=== PATIENT | male | born 1995 | race Caucasian/White ===

== ENCOUNTER 2021-01-24 10:00 | Emergency (ER) | payer BC ==
[2021-01-24 10:54] LABS: Urine Blood Negative (Negative); Urine Glucose Negative (Negative); Urine Protein Negative (Negative)
[2021-01-24 11:29] LABS: Barbiturates NEGATIVE (NEGATIVE); Benzodiazepines POSITIVE (NEGATIVE); Cocaine NEGATIVE (NEGATIVE); METHAMPHETAM NEGATIVE (NEGATIVE); Methadone NEGATIVE (NEGATIVE); Opiates NEGATIVE (NEGATIVE); Phencyclidine NEGATIVE (NEGATIVE); THC Cannibis POSITIVE (NEGATIVE)
[2021-01-24 11:32] LABS: Absolute Lymphocytes (CBC) 2.3 K/uL (0.7-4.9); Basophils % 0.7 % (0-1.3); Hematocrit 45.6 % (39.6-49.0); Lymphocytes % 11.8 % (15.3-44.8); MPV 9.8 fL (7.6-11.3)
[2021-01-24 11:35] LABS: Protime INR 1.06
[2021-01-24 12:05] LABS: ALT/SGPT 25 U/L (12-78); AST/SGOT 20 U/L (15-37); Albumin 4.1 g/dL (3.4-5.0); Alkaline Phosphatase 77 U/L (45-117); BUN Blood Urea Nitrogen 16 mg/dL (7-18); Bicarbonate 25 mmol/L (21-32); Bilirubin Direct 0.3 mg/dL (0-0.2); Bilirubin Total 1.8 mg/dL (0.2-1.0); Glucose Level 84 mg/dL (74-106); Protein, Total 7.1 g/dL (6.4-8.2); Sodium Level 140 mmol/L (136-145)
--- NOTE | 2021-01-24 12:18 | EDPHYS ---
Physician Documentation [facility] Name: Romero Orourke Age: 25 yrs Sex: Male : 1995 Arrival Date: 01/24/2021 Time: 10:01 Bed 16 Private MD: ED Physician Omkar Reza HPI: 01/24 12:08 This 25 yrs old Male presents to ER via EMS with complaints of Possible ma2 Overdose. 12:08 The patient presents to the emergency department with a known poisoning, valium. ma2 Associated signs and symptoms: Pertinent negatives: auditory hallucinations, depression, diarrhea, dizziness. Severity of symptoms: At their worst the symptoms were very mild in the emergency department the symptoms are unchanged. The patient has experienced a previous episode. 25-year-old male he overdosed 10 tablets of 5 mg Valium last night at 11 PM, he also had self-inflicted superficial laceration of the right forearm that he did last night at 10 PM, he was brought here by EMS, patient stated that he broke up with his girlfriend last night, and felt anxious, and stressed and that is why he did that, at this point he regretted and he said that he does not have any thoughts to harm self or suicidal ideation. He does not have any depression at this point, or any other depressive symptoms, no prior suicidal attempt, no alcohol history, or other recreational drugs except marijuana occasionally, he does have a rational thought, he does not have any organized plan or serious attempt in the past he does have a social support system very low risk as per sad persons score, gets 1 score only for recent spouse separation.. Historical: - Allergies: 10:08 No Known Allergies; ph - PMHx: 10:08 Bipolar disorder; ADD/ADHD; ph - Immunization history:: Client reports having NOT received the Covid vaccine. - Social history:: Smoking status: Patient reports the use of cigarette tobacco products, smokes one pack cigarettes per day. Patient uses alcohol, occasionally. street drugs, marijuana. - Family history:: not pertinent. ROS: 12:08 Constitutional: Negative for fever, chills, and weight loss. ma2 12:08 All other systems are negative. Exam: 12:08 Constitutional: This is a well developed, well nourished patient who is awake, alert, ma2 and in no acute distress. Head/Face: Normocephalic, atraumatic. Eyes: Pupils equal round and reactive to light, extra-ocular motions intact. Lids and lashes normal. Conjunctiva and sclera are non-icteric and not injected. Cornea within normal limits. Periorbital areas with no swelling, redness, or edema. ENT: Nares patent. No nasal discharge, no septal abnormalities noted. Tympanic membranes are normal and external auditory canals are clear. Oropharynx with no redness, swelling, or masses, exudates, or evidence of obstruction, uvula midline. Mucous membranes moist. Neck: Trachea midline, no thyromegaly or masses palpated, and no cervical lymphadenopathy. Supple, full range of motion without nuchal rigidity, or vertebral point tenderness. No Meningismus. Chest/axilla: Normal chest wall appearance and motion. Nontender with no deformity. No lesions are appreciated. Cardiovascular: Regular rate and rhythm with a normal S1 and S2. No gallops, murmurs, or rubs. Normal PMI, no JVD. No pulse deficits. Respiratory: Lungs have equal breath sounds bilaterally, clear to auscultation and percussion. No rales, rhonchi or wheezes noted. No increased work of breathing, no retractions or nasal flaring. Abdomen/GI: Soft, non-tender, with normal bowel sounds. No distension or tympany. No guarding or rebound. No evidence of tenderness throughout. Back: No spinal tenderness. No costovertebral tenderness. Full range of motion. Skin: Warm, dry with normal turgor. Normal color with no rashes, no lesions, and no evidence of cellulitis. MS/ Extremity: Pulses equal, no cyanosis. Neurovascular intact. Full, normal range of motion. Neuro: Awake and alert, GCS 15, oriented to person, place, time, and situation. Cranial nerves II-XII grossly intact. Motor strength 5/5 in all extremities. Sensory grossly intact. Cerebellar exam normal. Normal gait. Psych: Awake, alert, with orientation to person, place and time. Behavior, mood, and affect are within normal limits. 12:18 Musculoskeletal/extremity: Extremities: all appear grossly normal, with no appreciated ma2 pain with palpation, grossly normal except: There is multiple self-inflicted superficial lacerations of the right anterior forearm, about 6 separate lacerations ranging between 3 and 5 cm each, there is 2 deep wounds, however its more than 12 hours and nonsuturable., ROM: intact in all extremities, Circulation is intact in all extremities. Sensation intact. Compartment Syndrome exam of affected extremity: is normal. Tendon exam: specific tendon testing normal through active and passive range of motion DVT Exam: no pain. Vital Signs: 10:01 BP 111 / 69; Pulse 81; Resp 18; Temp 97.8; Pulse Ox 100% on R/A; Weight 86.18 kg; ph Height 6 ft. 2 in. (187.96 cm); 11:00 BP 108 / 78; Pulse 83; Resp 18; Pulse Ox 100% on R/A; ph 12:00 BP 112 / 68; Pulse 78; Resp 18; Pulse Ox 100% on R/A; ph 10:01 Body Mass Index 24.39 (86.18 kg, 187.96 cm) ph MDM: 10:01 Patient medically screened. [facility] 12:08 Differential diagnosis: Ingestion/exposure to Valium, we called poison control center [facility] and advised to discharge if blood work is within normal limits, patient does not need an emergent psych admission, he will follow up with psychiatrist, has history of bipolar, over medication, hypoglycemia. Data reviewed: vital signs, nurses notes. Counseling: I had a detailed discussion with the patient and/or guardian regarding: the historical points, exam findings, and any diagnostic results supporting the discharge/admit diagnosis, the presence of at least one elevated blood pressure reading (>120/80) during this emergency department visit, the need for outpatient follow up. 12:16 Response to treatment: the patient's symptoms have markedly improved after treatment. 01/24 10:01 Order name: Acetaminophen 01/24 10:01 Order name: Basic Metabolic Panel 01/24 10:01 Order name: CBC with Diff 01/24 10:01 Order name: ETOH Level; Complete Time: 12:05 [facility] 01/24 10:01 Order name: Hepatic Function; Complete Time: 12:16 01/24 10:01 Order name: PT-INR; Complete Time: 12:05 [facility] 01/24 10:01 Order name: Ptt, Activated; Complete Time: 12:05 [facility] 01/24 10:01 Order name: Salicylate ma01/24 10:01 Order name: Urine Drug Screen; Complete Time: 12:05 [facility] 01/24 10:02 Order name: Acetaminophen Level; Complete Time: 12:16 [facility] 01/24 10:02 Order name: Basic Metabolic Panel; Complete Time: 12:16 [facility] 01/24 10:02 Order name: CBC with Automated Diff; Complete Time: 12:05 [facility] 01/24 10:53 Order name: Urine Dipstick-Ancillary; Complete Time: 11:18 [facility] 01/24 10:01 Order name: EKG - Nurse/Tech [facility] 01/24 10:01 Order name: IV Saline Lock; Complete Time: 12:10 [facility] 01/24 10:01 Order name: Labs collected and sent; Complete Time: 12:10 [facility] 01/24 10:01 Order name: Suicide Precautions; Complete Time: 12:10 [facility] 01/24 10:01 Order name: Suicide Screening ([place]); Complete Time: 12:10 [facility] 01/24 10:01 Order name: Urine Dipstick-Ancillary (obtain specimen); Complete Time: 10:43 ma2 Administered Medications: No medications were administered Disposition Summary: 01/24/21 12:17 Discharge Ordered Location: Home ma2 Condition: Stable ma2 Diagnosis - Arm Laceration Right/Open wound forearm ma2 - Encounter for observation for suspected toxic effect from ingested substance ruled ma2 out Followup: ma2 - With: Private Physician - When: Tomorrow - Reason: If symptoms return Discharge Instructions: - Discharge Summary Sheet ma2 - Laceration Care, Adult, [id number] ma2 - Preventing Marijuana Misuse ma2 Forms: - Medication Reconciliation Form ma2 - Thank You Letter ma2 - Work release form ph - Antibiotic Education ma2 - Prescription Opioid Use ma2 Signatures: Dispatcher [employer] Veronica King RN RN ph Alzahri, Mohammad, MD MD ma2
--- NOTE | 2021-01-24 12:18 | ER ---
Nurse's Notes [facility] Name: Romero Orourke Age: 25 yrs Sex: Male : 1995 Arrival Date: 01/24/2021 Time: 10:01 Bed 16 Private MD: Diagnosis: Arm Laceration Right/Open wound forearm;Encounter for observation for suspected toxic effect from ingested substance ruled out Presentation: 01/24 10:01 Chief complaint: EMS states: Pt reports taking 15-20, 5mg Valium last night at around ph midnight, pt states that he was upset because he found out that his girlfriend of 6 months was talking to another man on social media, also has self inflicted lacerations to R forearm, pt states that he is not currently suicidal, that taking the valium was "on impulse" and "that the cutting was a way to feel the pain somewhere else" Hx of bipolar \\T\\ ADD/ADHD, is not currently on medication. Coronavirus screen: Client denies travel out of the [place] in the last 14 days. At this time, the client does not indicate any symptoms associated with coronavirus-19. Ebola Screen: No symptoms or risks identified at this time. Initial Sepsis Screen: Does the patient meet any 2 criteria? No. Patient's initial sepsis screen is negative. Does the patient have a suspected source of infection? No. Patient's initial sepsis screen is negative. Risk Assessment: Do you want to hurt yourself or someone else? Patient reports no desire to harm self or others. Onset of symptoms was January 24, 2021. 10:01 Method Of Arrival: EMS: [facility] ph 10:01 Acuity: LASHON 3 ph Historical: - Allergies: 10:08 No Known Allergies; ph - PMHx: 10:08 Bipolar disorder; ADD/ADHD; ph - Immunization history:: Client reports having NOT received the Covid vaccine. - Social history:: Smoking status: Patient reports the use of cigarette tobacco products, smokes one pack cigarettes per day. Patient uses alcohol, occasionally. street drugs, marijuana. - Family history:: not pertinent. Screenin:10 Abuse screen: Denies threats or abuse. Denies injuries from another. Nutritional ph screening: No deficits noted. Tuberculosis screening: No symptoms or risk factors identified. Fall Risk None identified. Assessment: 10:34 Reassessment: Spoke w/ Kyra at [place] poison control who recommends that we check a ph toxicology panel and refer pt to psychiatric care if it is found appropriate, no need to monitor patient for any specific period of time d/t time of ingestion. 10:43 General: Appears in no apparent distress. comfortable, slender, Behavior is calm, ph cooperative, appropriate for age, Pt continues to deny SI, states," I'm good, she's not worth all that. I just made a stupid decision last night. I don't know what I was thinking.". Pain: Denies pain. Neuro: Level of Consciousness is awake, alert, obeys commands, Oriented to person, place, time, situation. Cardiovascular: Capillary refill < 3 seconds in bilateral fingers. Respiratory: Airway is patent Respiratory effort is even, unlabored, Respiratory pattern is regular, symmetrical. GI: No signs and/or symptoms were reported involving the gastrointestinal system. Derm: Skin is healthy with good turgor, Skin is pink, warm \\T\\ dry. Musculoskeletal: Circulation, motion, and sensation intact. Range of motion: intact in all extremities. 11:00 Injury Description: Laceration sustained to dorsal aspect of right forearm is 2.6 to ph 7.5 cm long, not bleeding, was sustained 12-24 hours ago. Injury Description: Abrasion sustained to dorsal aspect of right forearm is scabbed, was sustained 12-24 hours ago. Laceration sustained to dorsal aspect of right forearm is 2.6 to 7.5 cm long, was sustained 12-24 hours ago. no active bleeding noted at this time. 11:30 Reassessment: Patient appears in no apparent distress at this time. Patient and/or ph family updated on plan of care and expected duration. Pain level reassessed. Patient is alert, oriented x 3, equal unlabored respirations, skin warm/dry/pink. pt requesting to go outside to smoke, explained to pt that he can't leave the ER w/ an IV in place and that the hospital is a non-smoking campus. Overdose: 10:46 [place] Suicide Severity Screening: "In the past month, have you wished you were ph or wished you could go to sleep and not wake up?" Patient responds "no." "In the past month, have you actually had any thoughts of killing yourself?" Patient responds "no." "In your lifetime, have you ever done anything, started to do anything, or prepared to do anything to end your life?" Patient responds "yes." Patient reports suicidal intent occurred greater than 3 months prior. Patient took 10-15 5mg Valium, states, " I was upset and did it on impulse to feel better.". Overdose occurred more than 10 hours ago. Vital Signs: 10:01 BP 111 / 69; Pulse 81; Resp 18; Temp 97.8; Pulse Ox 100% on R/A; Weight 86.18 kg; ph Height 6 ft. 2 in. (187.96 cm); 11:00 BP 108 / 78; Pulse 83; Resp 18; Pulse Ox 100% on R/A; ph 12:00 BP 112 / 68; Pulse 78; Resp 18; Pulse Ox 100% on R/A; ph 10:01 Body Mass Index 24.39 (86.18 kg, 187.96 cm) ph ED Course: 10:01 Patient arrived in ED. ph 10: Omkar Reza MD is Attending Physician. ma2 10:08 Triage completed. ph 10:10 Arm band placed on Patient placed in an exam room. ph 10:10 Patient has correct armband on for positive identification. Bed in low position. Call ph light in reach. Side rails up X 1. Pulse ox on. NIBP on. 10:29 Veronica Carpenter RN is Primary Nurse. ph 12:30 Wound care: to x2 located on dorsal aspect of right forearm was cleaned with Hibiclens, ph irrigated with normal saline, dressed with Neosporin, 4X4s, cling, Patient tolerated well. 12:44 No provider procedures requiring assistance completed. IV discontinued, intact, ph bleeding controlled, No redness/swelling at site. Pressure dressing applied. Administered Medications: No medications were administered Outcome: 12:17 Discharge ordered by . ma2 12:44 Patient left the ED. ph 12:44 Discharged to home ambulatory. ph 12:44 Condition: good 12:44 Discharge instructions given to patient, Instructed on discharge instructions, follow up and referral plans. wound care, Demonstrated understanding of instructions, follow-up care, wound care. Signatures: Veronica Carpenter RN RN Omkar Reza MD MD ma2 Corrections: (The following items were deleted from the chart) 15:27 10:43 General: Appears in no apparent distress. comfortable, slender, Behavior is calm, ph cooperative, appropriate for age, ph
== END 2021-01-24 12:44 | disposition home or self-care (01) ==
LOC: ER 10:00
DX: Z03.6 Encounter for observation for suspected toxic effect from ingested substance ruled out (principal); S51.811A Laceration without foreign body of right forearm, initial encounter; F17.210 Nicotine dependence, cigarettes, uncomplicated
CPT/HCPCS: 36415; 80048; 80076; 80307; 80320; 80329; 81003; 85025; 85610; 85730; 99284

== ENCOUNTER 2021-01-24 14:06 | Emergency (ER) | payer BC ==
--- NOTE | 2021-01-24 14:57 | EDPHYS ---
Physician Documentation [facility] Name: Romero Orourke Age: 25 yrs Sex: Male : 1995 Arrival Date: 01/24/2021 Time: 14:08 Bed 7 Private MD: ED Physician mOkar Reza HPI: 01/24 14:55 This 25 yrs old Male presents to ER via [employer] with complaints of ma2 Suicidal Ideation. 14:55 Onset: The symptoms/episode began/occurred suddenly, 1 day(s) ago. Associated signs and ma2 symptoms: Pertinent negatives: chest pain, delusions, fever, headache, homicidal ideation. Severity of symptoms: At their worst the symptoms were mild in the emergency department the symptoms are unchanged. The patient has experienced similar episodes in the past. Historical: - Allergies: 18:08 No Known Allergies; hb - PMHx: 14:12 ADD/ADHD; Bipolar disorder; ss - Immunization history:: Adult Immunizations up to date. - Social history:: Smoking status: Patient reports the use of cigarette tobacco products. - Family history:: not pertinent. ROS: 14:55 Constitutional: Negative for fever, chills, and weight loss. ma2 14:55 All other systems are negative. Exam: 14:55 Constitutional: This is a well developed, well nourished patient who is awake, alert, ma2 and in no acute distress. Head/Face: Normocephalic, atraumatic. Eyes: Pupils equal round and reactive to light, extra-ocular motions intact. Lids and lashes normal. Conjunctiva and sclera are non-icteric and not injected. Cornea within normal limits. Periorbital areas with no swelling, redness, or edema. ENT: Nares patent. No nasal discharge, no septal abnormalities noted. Tympanic membranes are normal and external auditory canals are clear. Oropharynx with no redness, swelling, or masses, exudates, or evidence of obstruction, uvula midline. Mucous membranes moist. Neck: Trachea midline, no thyromegaly or masses palpated, and no cervical lymphadenopathy. Supple, full range of motion without nuchal rigidity, or vertebral point tenderness. No Meningismus. Chest/axilla: Normal chest wall appearance and motion. Nontender with no deformity. No lesions are appreciated. Cardiovascular: Regular rate and rhythm with a normal S1 and S2. No gallops, murmurs, or rubs. Normal PMI, no JVD. No pulse deficits. Respiratory: Lungs have equal breath sounds bilaterally, clear to auscultation and percussion. No rales, rhonchi or wheezes noted. No increased work of breathing, no retractions or nasal flaring. Abdomen/GI: Soft, non-tender, with normal bowel sounds. No distension or tympany. No guarding or rebound. No evidence of tenderness throughout. Back: No spinal tenderness. No costovertebral tenderness. Full range of motion. Skin: Warm, dry with normal turgor. Normal color with no rashes, no lesions, and no evidence of cellulitis. MS/ Extremity: Pulses equal, no cyanosis. Neurovascular intact. Full, normal range of motion. Neuro: Awake and alert, GCS 15, oriented to person, place, time, and situation. Cranial nerves II-XII grossly intact. Motor strength 5/5 in all extremities. Sensory grossly intact. Cerebellar exam normal. Normal gait. Psych: suicidal attempts Vital Signs: 14:57 BP 116 / 71; Pulse 66; Resp 16; Temp 98.0(TE); Pulse Ox 98% on R/A; Pain 0/10; ss MDM: 14:55 Differential diagnosis: drug withdrawal. acute psychotic break, depression, psychosis ma2 secondary to non-compliance. Data reviewed: vital signs, nurses notes. Counseling: I had a detailed discussion with the patient and/or guardian regarding: the historical points, exam findings, and any diagnostic results supporting the discharge/admit diagnosis, the presence of at least one elevated blood pressure reading (>120/80) during this emergency department visit, lab results, the need for outpatient follow up. Counseling: I had a detailed discussion with the patient and/or guardian regarding: the need to transfer to another facility. Response to treatment: the patient's symptoms have markedly improved after treatment. 14:56 Patient medically screened. ma2 15:14 ED course: tox screen was done, all came back negative except UDS was positive for ma2 marijuana, and benzos. We initiated transfer I talked to Dr. Virgen he accepted the patient.. 01/24 16:16 Order name: SARS-COV-2 RT PCR EDMS Administered Medications: No medications were administered Disposition Summary: 01/24/21 14:56 Transfer Ordered Transfer Location: Other Acute Care Facility ma2 Reason: Higher level of care ma2 Condition: Stable ma2 Problem: new ma2 Symptoms: are unchanged ma2 Accepting Physician: vanessa(01/24/21 19:52) mw2 Diagnosis - Suicidal ideations ma2 Forms: - Medication Reconciliation Form ma2 - SBAR form ma2 Signatures: Dispatcher [employer] EDLizzeth Rosenberg RN RN Alpa Holliday RN RN Omkar Reza MD MD ma2 Nestor Guaman mw2 Corrections: (The following items were deleted from the chart) 15:24 14:10 CORONAVIRUS+MR.LAB.BRZ ordered. EDPR EDMS 18:08 16:47 Allergies: Geodon; hb 19:52 14:56 [facility] ma2 mw2
--- NOTE | 2021-01-24 14:57 | ER ---
Nurse's Notes [facility] Name: Romero Orourke Age: 25 yrs Sex: Male : 1995 Arrival Date: 01/24/2021 Time: 14:08 Bed 7 Private MD: Diagnosis: Suicidal ideations Presentation: 01/24 14:10 Chief complaint: housing management officer states that patient was discharged from hospital and ss went back home and stated that he wanted to take some of his mother's medication to harm himself. Upon arrival to ED, patient denies SI/HI. Coronavirus screen: Client denies travel out of the [place] in the last 14 days. Ebola Screen: Patient denies exposure to infectious person. Patient denies travel to an Ebola-affected area in the 21 days before illness onset. Initial Sepsis Screen: Does the patient meet any 2 criteria? No. Patient's initial sepsis screen is negative. Does the patient have a suspected source of infection? No. Patient's initial sepsis screen is negative. Risk Assessment: Do you want to hurt yourself or someone else? Patient reports no desire to harm self or others. Onset of symptoms is unknown. 14:10 Method Of Arrival: Law Enforcement: [place] [employer] 14:10 Acuity: LASHON 2 ss Historical: - Allergies: 18:08 No Known Allergies; hb - PMHx: 14:12 ADD/ADHD; Bipolar disorder; ss - Immunization history:: Adult Immunizations up to date. - Social history:: Smoking status: Patient reports the use of cigarette tobacco products. - Family history:: not pertinent. Screenin:45 Abuse screen: Denies threats or abuse. Denies injuries from another. Nutritional hb screening: No deficits noted. Tuberculosis screening: No symptoms or risk factors identified. Fall Risk None identified. Assessment: 14:45 General: Appears in no apparent distress. Behavior is agitated, anxious, uncooperative. hb Pain: Denies pain. Neuro: Level of Consciousness is awake, alert, obeys commands, Oriented to person, place, time, situation. Cardiovascular: Patient's skin is warm and dry. Respiratory: Respiratory effort is even, unlabored, Respiratory pattern is regular, symmetrical. GI: No signs and/or symptoms were reported involving the gastrointestinal system. : No signs and/or symptoms were reported regarding the genitourinary system. EENT: No signs and/or symptoms were reported regarding the EENT system. Derm: Skin is pink, warm \T\ dry. Musculoskeletal: No signs and/or symptoms reported regarding the musculoskeletal system. 14:50 Reassessment:. hb 14:58 Reassessment: Nurse to nurse given to SUSANNE Kaur at [facility]. Administrative ss approval given at this time and states that she will call back with Doc to Doc information here shortly. 15:45 Reassessment: Patient appears in no apparent distress at this time. Patient and/or hb family updated on plan of care and expected duration. Pain level reassessed. Patient is alert, oriented x 3, equal unlabored respirations, skin warm/dry/pink. 16:45 Reassessment: Patient appears in no apparent distress at this time. Patient and/or hb family updated on plan of care and expected duration. Pain level reassessed. Patient is alert, oriented x 3, equal unlabored respirations, skin warm/dry/pink. 17:55 Reassessment: Patient appears in no apparent distress at this time. Patient and/or hb family updated on plan of care and expected duration. Pain level reassessed. Patient is alert, oriented x 3, equal unlabored respirations, skin warm/dry/pink. 18:27 Reassessment: Patient appears in no apparent distress at this time. Patient and/or hb family updated on plan of care and expected duration. Pain level reassessed. Patient is alert, oriented x 3, equal unlabored respirations, skin warm/dry/pink. Vital Signs: 14:57 BP 116 / 71; Pulse 66; Resp 16; Temp 98.0(TE); Pulse Ox 98% on R/A; Pain 0/10; ss ED Course: 14:08 Patient arrived in ED. ss 14:11 Triage completed. ss 14:12 Arm band placed on right wrist. ss 14:14 Omkar Reza MD is Attending Physician. ma2 14:40 faxed chart to [facility]. [place] 14:45 Alpa Holliday, SUSANNE is Primary Nurse. 14:45 Patient has correct armband on for positive identification. Bed in low position. Call hb light in reach. Side rails up X 1. Seizure precautions initiated. 14:57 Admin approval given by Khloe Borden to [facility] to Dr. Pandya. mt 16:00 Judge Hardin signed transfer warrant order. mt 16:18 [facility] [place] [facility], dispatch stated he was on mt another call and would head this way when he can. Administered Medications: No medications were administered Outcome: 14:56 ER care complete, transfer ordered by MD. haynes 19:52 Patient left the ED. mw2 Signatures: Lizzeth Sol RN RN Alpa Holliday RN RN hb Thompson, Moriah mt Alzahri, Mohammad, MD MD ma2 Nestor Guaman mw2 Corrections: (The following items were deleted from the chart) 18:08 16:47 Allergies: Geodon; hb hb
[2021-01-24 19:57] VITALS: BP 116/71; TEMP 98; O2SAT 98
== END 2021-01-24 19:52 ==
LOC: ER 14:06
DX: R45.851 Suicidal ideations (principal); F17.210 Nicotine dependence, cigarettes, uncomplicated; Z20.822 Contact with and (suspected) exposure to COVID-19
CPT/HCPCS: 99282; U0003